=== PATIENT | male | born 1995 | race Caucasian/White ===

== ENCOUNTER 2016-09-01 | Emergency (ER) | payer BC ==
[~2016-09-01] VITALS: Ht 172.7 cm; Wt 72.7 kg
[2016-09-01 00:01] VITALS: BP 132/80
[2016-09-01] MEDS ORDERED: ONDANSETRON 2MG/ML, 2ML ONE (00:19)
[2016-09-01] MEDS ORDERED: MORPHINE SULFATE 4 MG/ML, 1ML ONE (00:19)
[2016-09-01] MEDS ORDERED: KETOROLAC 30 MG/1 ML ONE (00:19)
[2016-09-01] MEDS ORDERED: KETOROLAC 30 MG/1 ML IVPush ONE (00:30)
[2016-09-01] MEDS ORDERED: SODIUM CHLORIDE 0.9% 1,000ML IVBOLUS ONE (00:30)
[2016-09-01] MEDS ORDERED: SODIUM CHLORIDE FLUSH 10ML SYR IVF ONE (00:30)
[2016-09-01] MEDS ORDERED: MORPHINE SULFATE 4 MG/ML, 1ML IVPush PRN (00:30)
[2016-09-01] MEDS ORDERED: ONDANSETRON 2MG/ML, 2ML IVPush ONE (00:30)
[2016-09-01 00:56] LABS: BLOOD UREA NITROGEN 13 mg/dL (7-18)
== END 2016-09-01 01:38 | disposition home or self-care (01) ==
LOC: ED 01:31
DX: N20.1 Calculus of ureter (principal); F17.200 Nicotine dependence, unspecified, uncomplicated; F12.10 Cannabis abuse, uncomplicated
CPT/HCPCS: 36415; 74176; 80048; 81001; 82040; 85025; 96374; 96375; 99285; J1885; J2405; J7030